=== PATIENT | female | born 1990 | race Caucasian/White ===

== ENCOUNTER 2020-07-21 13:43 | Emergency (ER) | payer BC ==
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
[2020-07-21 16:05] VITALS: BP 111/64; PULSE 88
== END 2020-07-21 16:15 | disposition home or self-care (01) ==
LOC: LL.ED 13:43 → MERGE 13:43 → LL.ED 16:15
DX: O9A.213 Injury, poisoning and certain other consequences of external causes complicating pregnancy, third trimester (principal); O99.343 Other mental disorders complicating pregnancy, third trimester; S30.1XXA Contusion of abdominal wall, initial encounter; F41.8 Other specified anxiety disorders; Z3A.29 29 weeks gestation of pregnancy; W22.8XXA Striking against or struck by other objects, initial encounter
CPT/HCPCS: 99283; 99284